=== PATIENT | female | born 1985 | race Caucasian/White ===

== ENCOUNTER 2017-12-28 03:33 | Emergency (ER) | payer BC ==
[~2017-12-28] VITALS: Ht 167.6 cm; Wt 91.5 kg
[2017-12-28 03:35] VITALS: BP 146/79; PULSE 86; RESP 16; TEMP 98.8; O2SAT 99
--- NOTE | 2017-12-28 04:01 | PD ---
HPI Chief Complaint: Musculoskeletal Complaint Time Seen by Provider: 03:49 Travel History International Travel<30 days: No Contact w/Intl Traveler<30days: No Traveled to known affect area: No History of Present Illness HPI The patient is a 32-year-old female that twisted wrong tonight and complains of muscle spasm in her back. It is to the right of L5-S1 area. She states she had a back injury last summer and she states "L6-S1 were compressed". The patient states her pain is an 8/10 and sharp pain. She is visiting from [place] and will be here several weeks. PFSH Past Medical History ?: Not LMP: 12/23/17 Social History Alcohol Use: Yes Tobacco Use: Yes Substance Use: No Allergies-Medications (Allergen,Severity, Reaction): Coded Allergies: acetaminophen (Verified Allergy, Intermediate, 12/28/17) cefuroxime (Verified Allergy, Intermediate, 12/28/17) hydrocodone (Verified Allergy, Intermediate, 12/28/17) oxycodone (Verified Allergy, Intermediate, 12/28/17) Review of Systems Except as stated in HPI: all other systems reviewed are Neg Physical Exam Narrative GENERAL: Well-nourished, well-developed patient.The patient is alert, oriented 3 in moderate apparent distress with her low back discomfort. Her vital signs show blood pressure 146/79 but are otherwise normal. SKIN: Focused skin assessment warm/dry. No skin rash is seen. HEAD: Normocephalic. EYES: No scleral icterus. No injection or drainage. NECK: Supple, trachea midline. No JVD or lymphadenopathy. CARDIOVASCULAR: Regular rate and rhythm without murmurs, gallops, or rubs. RESPIRATORY: Breath sounds equal bilaterally. No accessory muscle use. GASTROINTESTINAL: Abdomen soft, non-tender, nondistended. MUSCULOSKELETAL: No cyanosis, or edema. Straight leg raising is normal, deep tendon reflexes are +2 bilaterally both patella Achilles and pinprick is normal. There is some slight tenderness well to the right of the L5-S1 area. BACK: Nontender without obvious deformity. No CVA tenderness. Data Data Last Documented VS Vital Signs Date Time Temp Pulse Resp B/P (MAP) Pulse Ox O2 Delivery O2 Flow Rate FiO2 12/28/17 03:35 98.8 86 16 146/79 (101) 99 Orders Orders Orphenadrine Inj (Norflex Inj) (2/19/18 04:15) Hydromorphone Pf Inj (Dilaudid Pf Inj) (12/28/17 04:15) Ondansetron Inj (Zofran Inj) (12/28/17 04:15) Ketorolac Inj (Toradol Inj) (12/28/17 04:15) MDM Medical Decision Making Medical Screen Exam Complete: Yes Emergency Medical Condition: Yes Medical Record Reviewed: Yes Differential Diagnosis Herniated nucleus pulposus, low back strain, muscle spasm back lumbar radiculopathy Narrative Course It is now 0500 and the patient feels better, the spasms of gone. She is still reluctant to move for fear that the spasms may come back. The patient will get a seven-day work excuse, use a heating pad and is given him ibuprofen 800 mg 3 times daily as well as Flexeril 3 times daily. She needs to follow-up with her primary care physician this week. Impression: Muscle spasm and low back strain Plan: Patient be given Flexeril and Motrin and use a heating pad. She is to follow-up with her primary care physician next week. Diagnosis Primary Impression: Low back strain Additional Impression: Muscle spasm of back Additional Instructions: As we discussed, use a heating pad on its lowest setting an interpose a towel between your skin and the pad to avoid rodríguez. Heat is useful but hot does not help anymore. Next week with your primary care physician. Med/Other Pt SpecificInfo: Prescription(s) given Scripts Ibuprofen (Ibuprofen) 800 Mg Tab 800 MG PO TID, #44 TAB 0 Refills Prov: Amilcar Carter MD 12/28/17 Cyclobenzaprine (Flexeril) 10 Mg Tab 10 MG PO TID for Muscle Spasm, #60 TAB 0 Refills Prov: Amilcar Carter MD 12/28/17 Disposition: 01 DISCHARGE HOME Condition: Stable Amilcar Carter MD Dec 28, 2017 04:01
[2017-12-28] MEDS ORDERED: ORPHENADRINE INJ 60 MG/2 ML AMP IM ONE (04:15)
[2017-12-28] MEDS ORDERED: HYDROmorphone HCL PF 2 MG/ML VIAL IM ONE (04:15)
[2017-12-28] MEDS ORDERED: ONDANSETRON HCL 4 MG/2 ML VIAL IM ONE (04:15)
[2017-12-28] MEDS ORDERED: KETOROLAC TROMETHAMINE 60 MG/2 ML (IM) VIAL IM ONE (04:15)
[2017-12-28] MEDS ORDERED: CYCL10TA PO (05:09)
[2017-12-28] MEDS ORDERED: IBUP1TAB7 PO (05:09)
[2017-12-28 05:23] VITALS: BP 156/79
== END 2017-12-28 05:26 | disposition home or self-care (01) ==
LOC: PHED 03:33
DX: S39.012A Strain of muscle, fascia and tendon of lower back, initial encounter (principal); X50.9XXA Other and unspecified overexertion or strenuous movements or postures, initial encounter; M62.830 Muscle spasm of back; Z72.0 Tobacco use
CPT/HCPCS: 96372; 99283; J1170; J1885; J2360; J2405